=== PATIENT | female | born 1990 | race Caucasian/White ===

== ENCOUNTER 2016-05-31 11:58 | Emergency (ER) | payer BC ==
[2016-05-31 13:10] VITALS: BP 132/72
--- NOTE | 2016-05-31 13:50 | RAD ---
HISTORY: Right hand: Pain, trauma COMPARISONS: None VIEWS: 4, Frontal, lateral, and oblique views of the right hand FINDINGS: BONE DENSITY: Normal. BONES: There is an oblique nondisplaced fracture of the fifth metacarpal. JOINTS: There is no arthropathy. ALIGNMENT: There is no dislocation. SOFT TISSUES: Unremarkable. OTHER FINDINGS: None. IMPRESSION: OBLIQUE, NONDISPLACED FRACTURE OF THE FIFTH METACARPAL
--- NOTE | 2016-05-31 14:04 | UC ---
Upper Extremity HPI - HPI Summary HPI Summary: did a "box jump" last pm and struck her right hand on the wooden box and felt pain and noted swelling. - History of Current Complaint Chief Complaint: UCUpperExtremity Stated Complaint: RIGHT HAND FINGER INJURY Time Seen by Provider: 05/31/16 14:03 Hx Obtained From: Patient Hx Last Menstrual Period: 05/22/16 ?: No Onset/Duration: Sudden Onset, Lasting Hours, Still Present Severity Initially: Moderate Severity Currently: Moderate Pain Intensity: 4 Pain Scale Used: 0-10 Numeric Location Of Pain: Is Discrete @ - right 5th metacarpal Character: Sharp, Aching Aggravating Factor(s): Movement Alleviating Factor(s): Nothing Associated Signs And Symptoms: Positive: Negative Related History: Dominant Hand Right - Allergies/Home Medications Allergies/Adverse Reactions: Allergies Allergy/AdvReac Type Severity Reaction Status Date / Time No Known Allergies Allergy Verified 05/31/16 13:10 PMH/Surg Hx/FS Hx/Imm Hx Previously Healthy: No - Crohn's - Surgical History Surgical History: Yes Surgery Procedure, Year, and Place: [place] teeth - Family History Known Family History: Negative: Cardiac Disease, Hypertension, Diabetes - Social History Occupation: Employed Full-time - teacher Lives: Alone Alcohol Use: Occasionally Alcohol Amount: wine Substance Use Type: None Smoking Status (MU): Never Smoked Tobacco Review of Systems Constitutional: Negative Skin: Negative Eyes: Negative ENT: Negative Respiratory: Negative Cardiovascular: Negative Gastrointestinal: Negative Genitourinary: Negative Motor: Negative Neurovascular: Negative Musculoskeletal: Arthralgia Neurological: Negative Psychological: Negative All Other Systems Reviewed And Are Negative: Yes Physical Exam Triage Information Reviewed: Yes Appearance: Well-Appearing, Well-Nourished, Pain Distress Vital Signs: Initial Vital Signs Temp 98.5 F 05/31/16 13:06 Pulse 63 05/31/16 13:06 Resp 14 05/31/16 13:06 BP 132/72 05/31/16 13:06 Pulse Ox 100 05/31/16 13:06 Vital Signs Reviewed: Yes Eyes: Positive: Conjunctiva Clear ENT: Positive: Normal ENT inspection Neck: Positive: Supple Respiratory: Positive: No respiratory distress Cardiovascular: Positive: RRR, Pulses Normal, Brisk Capillary Refill Musculoskeletal: Positive: Strength Intact, ROM Intact, Other: - tenderness and swelling right 5 th metacarpal Neurological: Positive: Alert, Muscle Tone Normal Psychological Exam: Normal Skin Exam: Normal Upper Extremity Course/Dx - Course Course Of Treatment: xray nondisplaced 5th metacarpal fracture - Differential Dx/Diagnosis Differential Diagnosis/HQI/PQRI: Fracture (Closed), Strain, Sprain Provider Diagnoses: 5th metacarpal fracture Discharge - Discharge Plan Condition: Stable Disposition: HOME Patient Education Materials: Hand Fracture (ED) Referrals: Francesco Mariee MD [Medical Doctor] - As Soon As Possible (Dr. Mariee will see you now. Go directly to his office. Do not eat or drink anything. ) No Primary Care Phys,NOPCP [Primary Care Provider] - Additional Instructions: You have a fractured [address] Mariee will see you now, which is why we have not splinted you. Go directly to his office now.
[2016-05-31] MEDS ORDERED: Ibuprofen TAB* 400 MG PO ONE (14:21)
== END 2016-05-31 14:36 | disposition home or self-care (01) ==
LOC: UCCORT 11:58
DX: S62.306A Unspecified fracture of fifth metacarpal bone, right hand, initial encounter for closed fracture (principal); W22.8XXA Striking against or struck by other objects, initial encounter; Y93.9 Activity, unspecified; Y92.9 Unspecified place or not applicable
CPT/HCPCS: 99212; A9270-GY; G0463